=== PATIENT | male | born 1990 | race African-American/Black ===

== ENCOUNTER → 2016-03-28 | Outpatient (CLI) | payer OTHER ==
[~2016-03-28] MED LIST: IOHEXOL 300 MG/ML 100ML VIAL. IV ONE
--- NOTE | 2016-03-28 14:20 | KCIC ---
Examination: CT of the abdomen and pelvis without and with IV contrast HISTORY History of ureteral stone. COMPARISON None available. TECHNIQUE Axial CT images of the abdomen pelvis were performed without and with IV contrast. Volumetric reformats of KUB was performed. Exposure: One or more of the following dose reduction technique were utilized for this examination: 1. Automated exposure control. 2.Adjustment of MA and /or KV according to patient size. 3. Use of iterative reconstruction technique. Findings: The visualized bibasilar lungs grossly appear unremarkable. No evidence of free air identified in the abdomen. The visualized liver demonstrates a tiny 3 millimeter hypodensity identified in the right lobe of the liver which is too small to characterize. The visualized spleen, adrenals grossly appears unremarkable. The gallbladder is mildly distended. The stomach is mildly distended. The visualized pancreas grossly appears unremarkable. The small bowel is nondilated. The appendix is normal.Feces and gas noted in the colon. Punctate intrarenal collecting system calculus identified in the left kidney measuring 3 millimeters. No evidence of hydronephrosis. No evidence of enhancing renal lesion identified. The urinary bladder is mildly distended. No evidence of filling defects identified in the urinary bladder. IMPRESSION 1. 3 millimeter intrarenal collecting system calculus identified in the left kidney. Electronically signed by: Karl Matthews (Mar 28, 2016 14:19:17)
== END | disposition home or self-care (01) ==
LOC: KCIC CT 10:59
PROVIDERS: ATTEND Family Medicine
DX: N20.1 Calculus of ureter (principal); N20.2 Calculus of kidney with calculus of ureter
CPT/HCPCS: 74178; Q9967